=== PATIENT | male | born 1995 | race Caucasian/White ===

== ENCOUNTER 2016-05-09 22:09 | Emergency (ER) | payer OTHER ==
[~2016-05-09] VITALS: Wt 83.3 kg
[2016-05-10] MEDS ORDERED: HYDROCODONE/APAP (5/325) TAB PO ONE (01:30)
[2016-05-10] MEDS ORDERED: AMOXICILLIN/CLAV 875 MG TAB PO ONE (01:30)
[2016-05-10] MEDS ORDERED: AMOX1TAB10 PO (01:35)
[2016-05-10] MEDS ORDERED: IBUP-1542 PO (01:36)
[2016-05-10] MEDS ORDERED: HYDR-906 PO (01:36)
--- NOTE | 2016-06-11 15:42 | ERD ---
ER Documentation Chief Complaint Date/Time DATE: 06/11/16 TIME: 15:34 Chief Complaint left upper dental pain x 3 days HPI Pleasant 20-year-old male patient presents to emergency department today with left upper tooth pain. Patient has history of dental caries, and abscesses. patient reports pain is 9/10 on pain scale.Patient denies nausea or vomiting, fever or chills. Patient is able to eat on the right side of his mouth but reports decreased appetite, is able to stay hydrated, reports pain is constant and throbbing. Patient reports that he does not have a dentist. ROS All systems reviewed and are negative except as per history of present illness. Medications Home Meds Active Scripts Ibuprofen* (Motrin*) 600 Mg Tab, 600 MG PO Q6, #30 TAB Prov:LAURENT,TRUDY 05/10/16 Hydrocodone/Acetaminophen ([place] 5-325 Tablet) 1 Each Tablet, 1 TAB PO Q6H for PAIN, #7 TAB Prov:LAURENT,TRUDY 05/10/16 Amoxicillin/Potassium Clav (Amox-Clav 875-125 mg Tablet) 875-125 mg Tab, 1 TAB PO BID for 10 Days, #20 TAB Prov:LAURENT,TRUDY 05/10/16 PMhx/Soc History of Surgery: No Anesthesia Reaction: No Hx Neurological Disorder: No Hx Respiratory Disorders: No Hx Cardiac Disorders: No Hx Psychiatric Problems: No Hx Miscellaneous Medical Probl: No (DENIES MED AND SURG HX.) Hx Alcohol Use: Yes (OCC) Hx Substance Use: Yes (MEDICAL MARIJUANA) Hx Tobacco Use: No Smoking Status: Never smoker Physical Exam Vitals Vitals stable, nursing notes reviewed Physical Exam Const: [ No acute distress, obviously does not feel well Head: Atraumatic Eyes: Normal Conjunctiva ENT: Left upper second molar presents cracked with black caries, gum is inflamed, gingivitis noted throughout teeth. Positive halitosis. Neck: Full range of motion..~No adenopathy Resp: Clear to auscultation bilaterally Cardio: Regular rate and rhythm, no murmurs Abd: Skin: Back: Ext: Neur: Awake and alert Psych: Normal Mood and Affect Results 24 hrs Current Medications Medications (Trade) Dose Ordered Sig/Sumi Route PRN Reason Start Time Stop Time Status Last Admin Dose Admin Acetaminophen/ Hydrocodone Bitart ([place] (5/325)) 1 tab ONCE ONCE PO 05/10/16 01:30 05/10/16 01:31 DC 05/10/16 01:38 Amoxicillin/ Clavulanate Potassium (Augmentin) 875 mg ONCE ONCE PO 05/10/16 01:30 05/10/16 01:31 DC 05/10/16 01:43 Procedures/MDM This 20-year-old male patient presents to emergency department today with dental abscess. Patient has poor oral hygiene, a cracked left upper molar with decay noted. Gingivitis, and suspected abscessed root. Patient will be placed on Augmentin, treated with [place] for pain. Greater than 5/10 on pain scale, and Motrin to use routinely as needed. Patient will be given information as to dental clinics that he may go to, call schedule appointment, teaching provided on oral hygiene in the importance of being careful not to get food particles his open cavity. I feel the patient is stable for discharge at this time. I have discussed results, examination findings, the treatment plan with the patient and family present prior to discharge. Indications for emergent reevaluation, side effects of medication were also discussed. All questions were answered. Patient verbalizes understanding and agrees with plan of care. Departure Diagnosis: Primary Impression: Tooth caries Additional Impression: Tooth decay Condition: Good Patient Instructions: Understanding Tooth Decay Referrals: [facility] ([facility] walk in clinic) TRUDY MANCILLA Jun 11, 2016 15:42
== END 2016-05-10 02:11 | disposition home or self-care (01) ==
LOC: FTE 22:09
DX: K02.9 Dental caries, unspecified (principal)
CPT/HCPCS: Z7502; Z7610; 99284

== ENCOUNTER 2018-07-13 17:35 | Emergency (ER) | payer MEDICAID, OTHER ==
[~2018-07-13] VITALS: Ht 167.6 cm; Wt 93.7 kg
[~2018-07-13 17:35] MED LIST: AMOX1TAB10 PO; HYDR-4011 PO; IBUP-1542 PO
[2018-07-13 18:30] VITALS: BP 126/82; PULSE 97; RESP 18; Ht 167.6 cm; Wt 93.7 kg
[2018-07-13] MEDS ORDERED: BELLADONNA/PHENOBARBITAL TAB PO STA (21:29)
[2018-07-13] MEDS ORDERED: FAMOTIDINE 20 MG TAB PO STA (21:29)
[2018-07-13] MEDS ORDERED: LIDOCAINE/MYLANTA 40 ML BTL PO STA (21:29)
--- NOTE | 2018-07-13 21:55 | ERD ---
ER Documentation Chief Complaint Chief Complaint umbilical ap x's 2 days HPI 23-year-old male presents with complaint of epigastric pain for the past 3 days. States the pain is intermittent. States the pain is worse when he lies down. States that the pain started after eating a pork chop 2 days ago. Has not had a history of this type of pain before. Also states he has been having some dysuria for the past 2 weeks.. Patient has had a history of UTIs in the past. Denies any nausea, vomiting, diarrhea, fevers, flank pain, diaphoresis, chest pain, pain made worse on exertion, shortness of breath, radiation to back. ROS All systems reviewed and are negative except as per history of present illness. Medications Home Meds Active Scripts Ibuprofen* (Motrin*) 600 Mg Tab, 600 MG PO Q6, #30 TAB Prov:LAURENT,TRUDY 05/10/16 Hydrocodone/Acetaminophen ([place] 5-325 Tablet) 1 Each Tablet, 1 TAB PO Q6H for PAIN, #7 TAB Prov:LAURENT,TRUDY 05/10/16 Amoxicillin/Potassium Clav (Amox-Clav 875-125 mg Tablet) 875-125 mg Tab, 1 TAB PO BID for 10 Days, #20 TAB Prov:LAURENT,TRUDY 05/10/16 PMhx/Soc Medical and Surgical Hx: pt denies Medical Hx History of Surgery: Yes (FACIAL RECONSTRUCTIVE SURGERY ) Anesthesia Reaction: No Hx Neurological Disorder: No Hx Respiratory Disorders: No Hx Cardiac Disorders: No Hx Psychiatric Problems: No Hx Miscellaneous Medical Probl: No (DENIES MED AND SURG HX.) Hx Alcohol Use: Yes Hx Substance Use: Yes (MARIJUANA ) Hx Tobacco Use: No Smoking Status: Current some day smoker FmHx Family History: No diabetes, No coronary disease, No other Physical Exam Vitals Vital Signs Date Temp Pulse Resp B/P (MAP) Pulse Ox O2 O2 Flow FiO2 Time Delivery Rate 07/13/18 98.7 97 18 126/82 99 18:30 (97) Physical Exam Const: No acute distress Head: Atraumatic Eyes: Normal Conjunctiva ENT: Normal External Ears, Nose and Mouth. Neck: Full range of motion. No meningismus. Resp: Clear to auscultation bilaterally Cardio: Regular rate and rhythm, no murmurs Abd: Mild tenderness to palpation epigastric area without guarding rigidity. No CVA tenderness. No McBurney's tenderness. Patient able to obtain up without exam. No pulsating masses noted. Skin: No petechiae or rashes Back: No midline or flank tenderness Ext: No cyanosis, or edema Neur: Awake and alert Psych: Normal Mood and Affect Results 24 hrs Current Medications Medications Dose Sig/Sumi Start Time Status Last (Trade) Ordered Route PRN Stop Time Admin Dose Reason Admin Famotidine 20 mg ONCE STAT 07/13/18 DC 07/13/18 (Pepcid) PO 21:29 21:39 07/13/18 21:33 40 ml ONCE STAT 07/13/18 DC 07/13/18 Miscellaneous PO 21:29 21:39 Medication 07/13/18 21:33 (Gi Cocktail (2)) Belladonna/ 2 tab ONCE STAT 07/13/18 DC 07/13/18 Phenobarbital PO 21:29 21:39 () 07/13/18 21:33 Procedures/MDM Patient left AMA before labs and imaging were completed. Departure Diagnosis: Primary Impression: Eloped from emergency department Condition: Stable RAUL GAMEZ Jul 13, 2018 21:55
== END 2018-07-13 21:55 | disposition left against medical advice (07) ==
LOC: FTE 17:35
DX: R10.13 Epigastric pain (principal); F17.210 Nicotine dependence, cigarettes, uncomplicated
CPT/HCPCS: 76705; 76775; Z7610

== ENCOUNTER 2018-07-24 13:16 | Emergency (ER) | payer MEDICAID ==
[~2018-07-24] VITALS: Ht 160 cm; Wt 92.6 kg
[2018-07-24 13:23] VITALS: Ht 160 cm; Wt 92.6 kg
[2018-07-24] MEDS ORDERED: MUPI22OI2 TOP (15:32)
[2018-07-24] MEDS ORDERED: CLOT15CR4 TP (15:33)
--- NOTE | 2018-07-24 15:45 | ERD ---
ER Documentation Chief Complaint Chief Complaint rash on chest, face and back x 5 days HPI 23-year-old male presents with complaints of rash to face back and chest x3 days. Patient notes history of acne and admits to picking at lesions. Eyes any purulent discharge, warmth, itching. Has not tried any topical ointments or medications to help alleviate symptoms. Resents due to concern over possible ringworm. Denies fevers medical conditions. ROS All systems reviewed and are negative except as per history of present illness. Medications Home Meds Active Scripts Clotrimazole/Betamethasone Dip (Lotrisone Cream) 15 Gm Cream..g., 15 GM TP BID for 7 Days, #1 TUB Prov:JOSE D IZAGUIRRE PA-C 07/24/18 Ibuprofen* (Motrin*) 600 Mg Tab, 600 MG PO Q6, #30 TAB Prov:LAURENT,TRUDY 05/10/16 Hydrocodone/Acetaminophen ([place] 5-325 Tablet) 1 Each Tablet, 1 TAB PO Q6H for PAIN, #7 TAB Prov:LAURENT,TRUDY 05/10/16 Amoxicillin/Potassium Clav (Amox-Clav 875-125 mg Tablet) 875-125 mg Tab, 1 TAB PO BID for 10 Days, #20 TAB Prov:LAURENT,TRUDY 05/10/16 Discontinued Scripts Mupirocin* (Bactroban*) 2% -22 Gram Oint...g., 1 APPLIC TOP BID for 10 Days, #1 TUBE Prov:JOSE D IZAGUIRRE PA-C 07/24/18 PMhx/Soc History of Surgery: No Anesthesia Reaction: No Hx Neurological Disorder: No Hx Respiratory Disorders: No Hx Cardiac Disorders: No Hx Psychiatric Problems: No Hx Miscellaneous Medical Probl: No Hx Alcohol Use: No Hx Substance Use: No Hx Tobacco Use: No Smoking Status: Never smoker Physical Exam Vitals Vital Signs Date Temp Pulse Resp B/P (MAP) Pulse Ox O2 O2 Flow FiO2 Time Delivery Rate 07/24/18 98.1 92 18 138/68 100 13:23 (91) Physical Exam Const: No acute distress Head: Atraumatic Eyes: Normal Conjunctiva ENT: Normal External Ears, Nose and Mouth. Neck: Full range of motion. No meningismus. Resp: Clear to auscultation bilaterally Cardio: Regular rate and rhythm, no murmurs Abd: Soft, non tender, non distended. Normal bowel sounds Skin: No petechiae or rashes. 3 cm x 4 cm circular erythematous crusted lesion to the upper back just distal to C7. One 5 cm x 2 cm lesion to the left cheek. Multiple smaller lesions to the right cheek and chest. Some honey colored crusting to the lesions of the chest. No warmth or discharge from the lesions. Back: No midline or flank tenderness Ext: No cyanosis, or edema Neur: Awake and alert Psych: Normal Mood and Affect Procedures/MDM MDM: Patient presented to the Emergency Department with non-specific skin rash and history suggesting the need for further workup. The patient had abnormalities on physical examination; however, the patients oropharynx was clear and exhibited no breathing difficulties, wheezing, tongue swelling, or lip swelling. Rash suspicious for impetigo versus tinea given nonclassic appearance. Counseled regarding differentials and given treatment for impetigo advised to start with Bactroban ointment. Patient discharged with Lotrisone ointment for possible tinea advised to use if symptoms persist. Patient expressed verbal understanding and agreement to treatment plan. All questions addressed and answered. Strict ED return precautions discussed. Departure Diagnosis: Primary Impression: Rash and other nonspecific skin eruption Condition: Good Additional Instructions: You were seen today for a non-specificrash. You were given two medications. Mupirocin is a topial antibiotic and Lotrisone is an anti-fungal/steroid cream. Please use Mupirocin as you are believed to have impetigo-a staphylococcal skin infection. If symptoms persist or do not resolve with 1 week of use, please fill script for lotrisone cream. JOSE D IZAGUIRRE PA-C July 24, 2018 15:45
[2018-07-24 15:52] VITALS: BP 131/80; PULSE 78; RESP 18
== END 2018-07-24 15:54 | disposition home or self-care (01) ==
LOC: FTE 13:16
DX: L98.9 Disorder of the skin and subcutaneous tissue, unspecified (principal)
CPT/HCPCS: 99283